=== PATIENT | male | born 1940 | race Hispanic/Latino ===

== ENCOUNTER 2018-06-10 20:39 | Inpatient (IN) | payer MEDICAID, SELFPAY ==
--- NOTE | 2018-06-10 21:03 | RAD ---
Portable frontal chest radiograph: 06/10/2018 COMPARISON: None HISTORY: Hypertension, sepsis FINDINGS: There is a subtle hazy area of increased density in the mid left lung zone.No pneumothorax, pleural fluid, focal consolidation, or alveolar edema. IMPRESSION: Hazy increased density in the mid left lung zone. Findings are suspicious for infectious pneumonitis. No focal consolidation.
[2018-06-10 21:23] LABS: Hemoglobin 12.2 g/dL (14.0-18.0); Mean Corpuscular HGB CONC 34.3 g/dL (32.0-36.0); Mean Corpuscular Hemoglobin 31.1 pg (27.0-31.0); Mean Corpuscular Volume 90.7 fL (78.0-98.0); RBC Distribution Width 12.1 % (11.5-14.5); Red Blood Cell (RBC) Count 3.93 mill/uL (4.70-6.10); White Blood Cell (WBC) Count 10.8 thou/uL (4.8-10.8)
[2018-06-10 21:27] LABS: #Lymphocytes 0.2 thou/uL (1.20-3.40); #Monocytes 0.6 thou/uL (0.11-0.59); #Neutrophils 9.9 thou/uL (1.40-6.50); %Basophils 0.3 % (0.0-1.0); %Eosinophils 0.1 % (0.0-10.0); %Lymphocytes 1.6 % (21.0-51.0); Mean Platelet Volume 8.7 fL (7.4-10.4); Platelet Count 115 thou/uL (130-400)
[2018-06-10 21:28] LABS: Platelet Morphology Comment Appears Decreased
[2018-06-10 21:39] LABS: ALT (SGPT) 8 U/L (8-55); AST (SGOT) 10 U/L (5-34); Alkaline Phosphatase 84 U/L (40-150); Anion Gap 19 mmol/L (10-20); Bilirubin, Total 0.6 mg/dL (0.2-1.2); Calc. Creatinine Clearance 0 mL/min (70-130); Calcium 8.6 mg/dL (7.8-10.44); Carbon Dioxide 19 mmol/L (23-31); Chloride 104 mmol/L (98-107); Estimated GFR-MDRD 4; Globulin 3.3 g/dL (2.4-3.5); Glucose 139 mg/dL (83-110); Lipase 35 U/L (8-78); Magnesium 1.8 mg/dL (1.6-2.6); Potassium 5.3 mmol/L (3.5-5.1); Protein, Total 6.3 g/dL (5.8-8.1); Sodium 137 mmol/L (136-145)
[2018-06-10] MEDS ORDERED: Acetaminophen 500 MG TAB ONE (21:42)
[2018-06-10 21:53] LABS: BUN (Urea Nitrogen) 125 mg/dL (8.4-25.7)
[2018-06-10 21:58] LABS: CKMB 2.5 ng/mL (0-6.6)
[2018-06-10 22:14] LABS: Bilirubin Negative (Negative); Blood, Urine Large (Negative); Clarity CLOUDY (Clear); Glucose, Urine (Dipstick) 250 mg/dL (Negative); Leukocyte Negative (Negative); Nitrite Negative (Negative); Protein, Urine (Dipstick) > or equal to 300 mg/dL (Neg-Trace); Specific Gravity, Urine 1.016 (1.002-1.036); Urobilinogen 0.2 mg/dL (0.2-1.0); pH, Urine 5.5 (5.0-9.0)
[2018-06-10 22:17] LABS: Bacteria/HPF None Seen HPF (None Seen); Hyaline Casts/LPF 4-6 HYALINE CAST LPF (0-3 Hyaline); Pathc Cast-AUWi Flag 1.63 (0-2.49)
[2018-06-10] MEDS ORDERED: cefTRIAXone\\ROCEPHIN 2 GM VIAL ONE (23:04)
[2018-06-10] MEDS ORDERED: Sodium Chloride 0.9% 100 ML ONE (23:04)
--- NOTE | 2018-06-10 23:31 | CT ---
Head CT without contrast 06/10/2018: COMPARISON: 912 oh HISTORY: Altered mental status, hypertension TECHNIQUE: Axial CT imaging at 5 mm intervals from vertex through skull base without contrast FINDINGS: There is mucosal thickening involving the alveolar recess of the left maxillary sinus. Ther e is mild mucosal thickening of the ethmoid air cells and there is near complete opacification of the right sphenoid sinus. There is opacification of the left mastoid air cells. No acute osseous abno rmality is seen. There is encephalomalacia involving the left temporal occipital region, evidence of prior infarction. There is periventricular, deep, and subcortical white matter hypodensity, evidence of small vessel disease. No intracranial hemorrhage midline shift or mass effect. IMPRESSION: Mucosal disease involving the paranasal sinuses and left mastoid air cells. Chronic intra cranial findings with no evidence for intracranial hemorrhage.
--- NOTE | 2018-06-10 23:51 | CT ---
CT of abdomen and pelvis: 06/10/2018 COMPARISON: None HISTORY: Cough, confusion TECHNIQUE: Axial CT imaging at 5 mm intervals from lung bases through pubic symphysis without contras t. Coronal reformatted imaging obtained. FINDINGS: Lack of contrast media limits assessment of the viscera, bowel, vascular structures, and fo r lymphadenopathy. Trace bilateral pleural effusions. Imaged lung bases unremarkable. Mild wall thickening of distal esophagus noted. Trace pericardial fluid. No free intraperitoneal air. Smith catheter present within the urinary bladder. Postoperative hardware noted within the proximal right femur. Hyperdensity in the region of the gallbladder suggests small gallstones. Limited assessment of the li sandra and spleen appear unremarkable. The pancreas, adrenal glands, and kidneys demonstrate no acute findings. There is nonspecific mild wall thickening of the rectum. The remainder of the colon is not well asses sed secondary to the lack of contrast media. The appendix is grossly unremarkable. No evidence for small bowel obstruction. Multifocal atherosclerotic calcification of the abdominal aorta and its bran ches. Review of the osseous structures demonstrates multilevel degenerative change within the spine with disc space narrowing and osteophyte formation. IMPRESSION: No evidence for obstructive uropathy or nephrolithiasis. Trace bilateral pleural effusion s and small volume pericardial fluid. Cholelithiasis. Mild wall thickening of the rectum, which may signify colitis in the proper clinical setting. If symptoms persist, follow-up imaging with IV and or al contrast suggested.
[2018-06-11 00:18] LABS: Troponin I 0.081 ng/mL (< 0.028)
--- NOTE | 2018-06-11 00:20 | PDOC.FPRHP ---
- History of Present Illness Chief Complaint: fever, weakness History of Present Illness: 78 yo M with PMH HTN and CKD presents with daughter for fever, productive cough , weakness. Symptoms started yesterday and have progressively worsened. Much of history obtained from daughter. Notes subjective fever/chills, sleepiness, weak , productive cough, increased thirst. While in the room patient complains of chest pain that is also posterior and reproducible to palpation. Patient is A& O x1. Patient lives in [place] and came to [place] 2 months ago to visit family. Has history of CKD and was previously recommended dialysis in [place] but refused. Lengthy discussions with ER doctors and Dr. Orellana in ED regarding dialysis. Patient refuses at this time. Discussed code status and daughter explained other sisters are coming into town and they will have further discussions about this. Patient to be full code at this time. ED Course: rocephin, tylenol, 500 mL, vanc, cefazolin - Allergies/Adverse Reactions Allergies Allergy/AdvReac Type Severity Reaction Status Date / Time No Known Drug Allergies Allergy Verified 06/11/18 01:24 - Home Medications Medication Instructions Recorded Confirmed Type Bumetanide 2 mg PO 0900,1400 06/11/18 06/11/18 History Calcitriol 0.25 mcg PO DAILY 06/11/18 06/11/18 History Prazosin HCl [Minipress] 1 mg PO TID 06/11/18 06/11/18 History - History PMHx: HTN, CKD PSHx: none FHx: none Social: No tobacco, alcohol, drug use. - Review of Systems General: reports: fever/chills, weight/appetite/sleep changes, fatigue Eyes: denies: vision changes (poor vision, no acute change) ENT: denies: nasal congestion Respiratory: reports: cough Cardiovascular: reports: chest pain, edema. denies: palpitation, orthopnea Gastrointestinal: denies: nausea, vomiting, diarrhea, abdominal pain Genitourinary: denies: dysuria Skin: denies: rashes, lesions Musculoskeletal: reports: pain, tenderness Neurological: reports: weakness - Vital signs BP: 183/99 HR: 94 RR: 24 Tmax: 101.3 Pox: 98% on RA Wt: 72 kg - Physical Exam Constitutional: NAD, other (A&O to person only) HEENT: normocephalic and atraumatic, MMM, oropharynx clear, other (poor vision and hearing) Neck: supple, trachea midline, no LAD Chest: other (L side TTP) Heart: RRR, normal S1/S2, pulses present, other (1+ pitting edema BLE) Lungs: no respiratory distress, other (diffuse rhonchi bilateral with decreased air movement in lower lungs) Abdomen: soft, non-tender, bowel sounds present Musculoskeletal: normal structure, normal tone Neurological: no focal deficit Skin: no rash/lesions, good turgor Heme/Lymphatic: no unusual bruising or bleeding FMR H&P: Results - Labs Result Diagrams: 06/11/18 03:03 06/11/18 03:03 Lab results: WBC 10.8 thou/uL (4.8-10.8) 06/10/18 20:51 Hgb 12.2 g/dL (14.0-18.0) L 06/10/18 20:51 Hct 35.7 % (42.0-52.0) L 06/10/18 20:51 MCV 90.7 fL (78.0-98.0) 06/10/18 20:51 Plt Count 115 thou/uL (130-400) L 06/10/18 20:51 Neutrophils % 92.0 % (42.0-75.0) H 06/10/18 20:51 Sodium 137 mmol/L (136-145) 06/10/18 20:51 Potassium 5.3 mmol/L (3.5-5.1) H 06/10/18 20:51 Chloride 104 mmol/L (98-107) 06/10/18 20:51 Carbon Dioxide 19 mmol/L (23-31) L 06/10/18 20:51 BUN 125 mg/dL (8.4-25.7) H 06/10/18 20:51 Creatinine 12.31 mg/dL (0.7-1.3) H 06/10/18 20:51 Glucose 139 mg/dL (83-110) H 06/10/18 20:51 Lactic Acid 0.8 mmol/L (0.5-2.2) 06/10/18 20:51 Calcium 8.6 mg/dL (7.8-10.44) 06/10/18 20:51 Total Bilirubin 0.6 mg/dL (0.2-1.2) 06/10/18 20:51 AST 10 U/L (5-34) 06/10/18 20:51 ALT 8 U/L (8-55) 06/10/18 20:51 Alkaline Phosphatase 84 U/L (40-150) 06/10/18 20:51 CK-MB (CK-2) 2.5 ng/mL (0-6.6) 06/10/18 20:51 B-Natriuretic Peptide 528.1 pg/mL (0-100) H 06/10/18 20:51 Serum Total Protein 6.3 g/dL (5.8-8.1) 06/10/18 20:51 Albumin 3.0 g/dL (3.4-4.8) L 06/10/18 20:51 Lipase 35 U/L (8-78) 06/10/18 20:51 Urine Ketones Negative mg/dL (Negative) 06/10/18 21:52 Urine Blood Large (Negative) H 06/10/18 21:52 Urine Nitrite Negative (Negative) 06/10/18 21:52 Ur Leukocyte Esterase Negative (Negative) 06/10/18 21:52 Urine RBC 7-10 HPF (0-3) H 06/10/18 21:52 Urine WBC 11-20 HPF (0-3) H 06/10/18 21:52 Ur Squamous Epith Cells 4-6 HPF (0-3) H 06/10/18 21:52 Urine Bacteria None Seen HPF (None Seen) 06/10/18 21:52 FMR H&P: A/P - Problem List (1) Lower respiratory infection (e.g., bronchitis, pneumonia, pneumonitis, pulmonitis) Current Visit: Yes Status: Acute Code(s): J22 - UNSPECIFIED ACUTE LOWER RESPIRATORY INFECTION (2) CKD (chronic kidney disease) Current Visit: Yes Status: Acute Code(s): N18.9 - CHRONIC KIDNEY DISEASE, UNSPECIFIED (3) Acute metabolic encephalopathy Current Visit: Yes Status: Acute Code(s): G93.41 - METABOLIC ENCEPHALOPATHY (4) HTN (hypertension) Current Visit: Yes Status: Acute Code(s): I10 - ESSENTIAL (PRIMARY) HYPERTENSION (5) Chest pain Current Visit: Yes Status: Acute Code(s): R07.9 - CHEST PAIN, UNSPECIFIED (6) Normocytic anemia Current Visit: Yes Status: Acute Code(s): D64.9 - ANEMIA, UNSPECIFIED (7) Thrombocytopenia Current Visit: Yes Status: Acute Code(s): D69.6 - THROMBOCYTOPENIA, UNSPECIFIED (8) Elevated brain natriuretic peptide (BNP) level Current Visit: Yes Status: Acute Code(s): R79.89 - OTHER SPECIFIED ABNORMAL FINDINGS OF BLOOD CHEMISTRY - Plan Infectious pneumonitis - fever, no tachypnea, WBC and lactic normal on admission - CXR with hazy increased density in mid left lung, infectious pneumonitis, no focal consolidation - CT ab/pelvis showed trace b/l pleural effusions and small volume pericardial fluid, cholelithiasis, mild wall thickening of rectum - CT brain showed no acute intracranial process - will continue levaquin 06/11 for now - duoneb prn - pending blood cultures, quant gold, procal Acute renal failure on CKD - Cr 12.3, unknown baseline - patient is candidate for dialysis, currently does not desire - Dr. Orellana consulted from ED, appreciate further recommendations - received 500mL in ED, will continue gentle fluids @ 75. Smith [address]. Monitor strict I&Os and for signs of volume overload. Acute metabolic encephalopathy - 2/2 above - ordered bedside swallow HTN - labetalol and hydralazine prn - will restart home bumetanide, prazosin Chest pain, reproducible - trop indeterminate, will continue to trend - EKG normal Normocytic anemia - Hgb 12, likely 2/2 chronic disease Thrombocyopenia - platelets 115 - will trend on am labs Elevated BNP - 500, possibly unreliable considering kidney function Diet: Renal Ppx: heparin Dispo: admit to inpatient telemetry PCP: none, lives in [place] Case discussed with Dr. Champion FMR H&P: Upper Level - Pertinent history 78 yo HM with PMHx HTN and CKD who presents with 2 days of symptoms of malaise, weakness, fever/chills and increased thirst with productive cough. Daughter reports he is here visiting his children from [place] and when he began to feel poorly, they brought him to ED. Denies sick contacts. Has known h/o CKD and strongly declines dialysis. Dr. Orellana saw him in ED. He reports he still makes urine. Denies n/v/d. - Pertinent findings VS reviewed - hypertensive Gen: awake, alert, oriented x2 HEENT: NCAT, MMM, poor vision and slightly diminished hearing, trachea midline, JVD noted BL CV: RRR, no murmur noted RESP: diffuse rhonchi BL ABD: soft, NTND, bowel sound present EXT: trace edema to mid-melgoza BL, feet with slightly thickened nails, pulse 1+ throughout - Plan Date/Time: 06/11/18 0020 78 yo M with known h/o CKD presents with SARAH on CKD 1. SARAH on CKD - Meets criteria for dialysis but declines - Appreciate Dr. Orellana's recommendations - Will give gentle fluids and monitor UOP and for signs of fluid overload - Repeat BMP in a.m. 2. Infectious pneumonitis - No focal consolidation on CXR - Given vanc, rocephin and cefazolin in ED - Will continue abx coverage with levaquin - Quant gold pending for TB risk 3. HTN - Home medications and hydralazine PRN 4. Chest pain - Reproducible with palpation - Troponin indeterminate, will continue to trend - EKG NSR - CXR showed infectious pneumonitis Please see Dr. Ross's note for remainder of A/P I, [place] Henao MD, PGY-3, have evaluated this patient and agree with findings/ plan as outlined by internal revenue service agent resident. Pertinent changes/additions are listed here. Addendum - Attending - Attending Attestation Date/Time: 06/11/18 [id number] I personally evaluated the patient and discussed the management with Dr. Ross on 06/10/2018 I agree with the History, Examination, Assessment and Plan documented above with any addition or exceptions noted below- 78 yo M with h/o of HTN and CKD presents with fever, productive cough, weakness. Symptoms started yesterday and have progressively worsened. Endorses subjective fever/chills, sleepiness, weak , productive cough, increased thirst. While in the room patient complains of chest pain that is also posterior and reproducible to palpation. Patient is A& O x1. Has history of CKD and was previously recommended dialysis in [place] but refused. Lengthy discussions with ER doctors and Dr. Orellana in ED regarding dialysis. Patient refuses at this time. PMH/PSH/Meds/ SH reviewed and agree with resident's documentation. T101.3 P94, RR14 BP 190/82 99%RA Exam repeated by me and agree with resident's findings. Labs: WBC=10.8, H/H=12.2/35.7 , Bfx=751, Jx=292, K=5.3, Ts=150, CO2=19, BUN/Gq=646/12.31, Qzex=644, AST/ALT=10 /8, XLD=764.1, TSH=2.8637, Trop I=0.066, U/A-lg blood, 4+prot, 11-20 WBC, 7-10 RBC. Flu negative, EKG- NSR, no ST changes. CXR- LLL haziness suspicious for infectious pneumonitis A/P: 1) Infectious pneumonitis- Admit to medical; continue levaquin. 20 CKD- patient declining dialysis; continue to monitor.
[2018-06-11] MEDS ORDERED: Acetaminophen 325 MG TAB PO PRN ×2 (00:34→00:55)
[2018-06-11] MEDS ORDERED: Ondansetron PF 4 MG/2 ML Vial IVP PRN ×2 (00:34→00:55)
[2018-06-11] MEDS ORDERED: Ondansetron ODT 4 MG TAB SL PRN (00:34)
[2018-06-11] MEDS ORDERED: Ondansetron ODT 4 MG TAB PO PRN (00:55)
[2018-06-11] MEDS ORDERED: Acetaminophen 650 MG Suppository PR PRN (00:55)
[2018-06-11] MEDS: Lactated Ringer's 1,000 ML IV SCH ×2 (01:26→14:48)
[2018-06-11] MEDS: Labetalol HCl 100 MG/20 ML VIAL SLOW IVP PRN ×2 (02:03→17:53)
[2018-06-11 02:41] VITALS: BMI 27.6
[2018-06-11 04:00] LABS: Band 18 % (5-11); Hemoglobin 11.4 g/dL (14.0-18.0); Lymphocytes 3 % (21-51); MDiff Complete? YES; Mean Corpuscular HGB CONC 33.4 g/dL (32.0-36.0); Mean Corpuscular Hemoglobin 30.2 pg (27.0-31.0); Mean Corpuscular Volume 90.3 fL (78.0-98.0); Mean Platelet Volume 8.5 fL (7.4-10.4); Monocytes 6 % (0-10); Neutrophil 73 % (42-75); Platelet Count 107 thou/uL (130-400); Platelet Morphology Comment Appears Decreased; Red Blood Cell (RBC) Count 3.78 mill/uL (4.70-6.10); White Blood Cell (WBC) Count 9.7 thou/uL (4.8-10.8)
[2018-06-11 04:22] LABS: Anion Gap 18 mmol/L (10-20); Calc. Creatinine Clearance 5 mL/min (70-130); Calcium 8.2 mg/dL (7.8-10.44); Carbon Dioxide 18 mmol/L (23-31); Chloride 106 mmol/L (98-107); Estimated GFR-MDRD 4; Glucose 121 mg/dL (83-110); Potassium 4.9 mmol/L (3.5-5.1); Sodium 137 mmol/L (136-145)
[2018-06-11 04:34] LABS: BUN (Urea Nitrogen) 127 mg/dL (8.4-25.7)
[2018-06-11] MEDS: hydrALAZINE 20 MG/ML VIAL SLOW IVP PRN ×2 (04:46→21:41)
--- NOTE | 2018-06-11 06:51 | PDOC.FM ---
- Subjective Subjective: A&O x4 this morning. Family from out of state will be arriving around 1pm today and would like to have discussion with options for treatment at that time. Currently reports headache and some chest pain with palpation of chest wall but denies shortness of breath or pain elsewhere. - Objective MAR Reviewed: Yes Vital Signs & Weight: Vital Signs (12 hours) Temp Pulse Resp BP Pulse Ox 06/11/18 05:51 89 165/74 H 06/11/18 04:14 98.3 F 86 16 188/80 H 96 06/11/18 02:42 82 190/77 H 06/11/18 02:00 98 217/93 H 06/11/18 00:12 97.5 F L 97 20 194/86 H 93 L Weight Weight 68.583 kg Result Diagrams: 06/11/18 03:03 06/11/18 03:03 Phys Exam - Physical Examination Constitutional: NAD HEENT: moist MMs Neck: supple diffuse rhonchi bilateral with decreased air movement in lower lungs Cardiovascular: RRR, no significant murmur 1+ pitting edema b/l Gastrointestinal: soft, non-tender, positive bowel sounds Musculoskeletal: no edema Neurological: moves all 4 limbs Psychiatric: normal affect, A&O x 3 Skin: normal turgor Dx/Plan (1) ESRD (end stage renal disease) Code(s): N18.6 - END STAGE RENAL DISEASE Status: Acute (2) Atypical chest pain Code(s): R07.89 - OTHER CHEST PAIN Status: Acute (3) Acute metabolic encephalopathy Code(s): G93.41 - METABOLIC ENCEPHALOPATHY Status: Acute (4) HTN (hypertension) Code(s): I10 - ESSENTIAL (PRIMARY) HYPERTENSION Status: Acute (5) Lower respiratory infection (e.g., bronchitis, pneumonia, pneumonitis, pulmonitis) Code(s): J22 - UNSPECIFIED ACUTE LOWER RESPIRATORY INFECTION Status: Acute (6) Normocytic anemia Code(s): D64.9 - ANEMIA, UNSPECIFIED Status: Acute (7) Thrombocytopenia Code(s): D69.6 - THROMBOCYTOPENIA, UNSPECIFIED Status: Acute - Plan Plan: 78yo male with pmh of HTN presenting with infectious pneumonitis and SARAH Infectious pneumonitis - Initially fever, no tachypnea, WBC, lactic normal on admission - CXR: hazy increased density in mid L lung, infectious pneumonitis, no focal consolidation - CT ab/pelvis: trace b/l pleural effusions & small volume pericardial fluid, cholelithiasis, mild wall thickening of rectum - CT brain: no acute intracranial process - Continue levaquin 06/11, procal pending - Duonebs PRN - Blood & Urine cxs, quant gold - Will give PPD skin test as Quant gold will not be sent out until Mon - Possibly due to aspiration 2/2 encephalopathy related to ESRD ESRD likely 2/2 HTN - Hgb A1c 4.4 - Cr 12.3-> 12.56, unknown baseline - Candidate for dialysis, currently does not desire - Dr. Orellana consulted from ED, appreciate recs - 500mL in ED, continue gentle fluids @75. Smith in place. Monitor strict I&Os and for signs of volume overload. - Palliative care consult - Family discussion this afternoon using stock tracer planned Acute metabolic encephalopathy - 2/2 ESRD HTN - labetalol and hydralazine prn - Continue home bumetanide, prazosin Chest pain, reproducible - Trop indeterminates, stable - EKG no ST segment changes Normocytic anemia - Hgb 12, likely 2/2 chronic disease Thrombocyopenia - Continue to monitor with CBC Elevated BNP - 500, possibly unreliable considering kidney function Code Status: FULL DVT ppx: Heparin PCP: none, lives in [place]
[2018-06-11] MEDS ORDERED: Tuberculin PPD 0.1 ML VIAL I-DERMAL SCH (07:00)
[2018-06-11 08:14] LABS: Hemoglobin A1c 4.4 % (4.0-6.0)
[2018-06-11] MEDS ORDERED: Prevnar 13-Val Conj/PF 0.5 ML SYRINGE IM ONE (09:00)
[2018-06-11] MEDS: Calcitriol 0.25 MCG CAP PO SCH (09:36)
[2018-06-11] MEDS: Bumetanide 1 MG TAB PO SCH ×2 (09:37→14:48)
[2018-06-11] MEDS: Heparin 5,000 UNITS/ML VIAL SC SCH ×3 (09:37→21:39)
[2018-06-11] MEDS: Prazosin HCl 1 MG CAP PO SCH ×3 (09:38→21:41)
--- NOTE | 2018-06-11 11:45 | CON ---
DATE OF CONSULTATION: 06/10/2018 TIME OF CONSULTATION: 11:00 p.m. in the emergency room. REASON FOR CONSULTATION: End-stage renal disease and hyperkalemia. HISTORY OF PRESENT ILLNESS: This is a very pleasant 78-year-old gentleman, who presented to the emergency room after feeling bad. The patient was noted to have an elevated creatinine and he was advised to start on dialysis, but the patient has declined. PAST MEDICAL HISTORY: Hypertension, CKD, anemia. MEDICATIONS: Home medications list reviewed. Hospital medications list reviewed. ALLERGIES: REVIEWED. REVIEW OF SYSTEMS: Negative. PHYSICAL EXAMINATION: GENERAL: The patient is awake and alert. VITAL SIGNS: Afebrile, pulse 75, breathing 16, blood pressure 160/70. HEAD/NECK: Normocephalic and atraumatic. EYES: EOMI. No deformity. EARS: Clear. No ulcers. NOSE: Intact. No lesions. MOUTH: Clear. No discharge. THROAT: Clear. No exudate. LUNGS: Clear. No crackles. CARDIAC: S1, S2. No rub. ABDOMEN: Benign. Bowel sounds positive. GENITALIA/RECTUM: Smith absent. BACK/EXTREMITIES: Edema 0+. NEUROLOGICAL: Alert and motor intact. SKIN: LYMPHATICS: LABORATORY DATA: Reviewed. ASSESSMENT AND PLAN: Stage 6 chronic kidney disease. Advised dialysis, the patient declined. Hypertension. Continue home medication. Anemia, stable. Uremia, stable. Overall prognosis is poor. Risks were given again. This patient was seen on June 10 at 11 p.m. in the emergency room. Job ID: [id number]
--- NOTE | 2018-06-11 12:29 | PRG ---
DATE OF SERVICE: 06/11/2018 SUBJECTIVE: A 78-year-old gentleman being seen for end-stage renal disease. The patient denied any nausea, vomiting, or chest pain. OBJECTIVE: CONSTITUTIONAL: On exam, the patient is awake and alert. VITAL SIGNS: Afebrile, pulse 93, breathing 16, and blood pressure 165/74. GENERAL APPEARANCE AND MENTAL STATUS: Fair. HEAD/NECK: Normocephalic. Atraumatic. EYES: EOMI. No deformity. EARS: Clear. No ulcers. NOSE: Intact. No lesions. MOUTH: Clear. No discharge. THROAT: Clear. No exudate. LUNGS: Clear. No crackles. CARDIAC: S1, S2. No rub. ABDOMEN: Benign. Bowel sounds positive. GENITALIA/RECTUM: Smith absent. BACK/EXTREMITIES: Edema 0+. NEUROLOGICAL: Alert and motor intact. LABORATORY DATA: Reviewed. ASSESSMENT AND PLAN: 1. Stage chronic kidney disease. The patient refused dialysis. 2. Hypertension, stable. 3. Anemia, stable. I will sign off on this patient. Please reconsult as needed. Job ID: [id number]
--- NOTE | 2018-06-11 13:04 | PRG ---
DATE OF SERVICE: 06/11/2018 Mr. Brandon Zhang is a 78-year-old man, who presented to our ER with productive cough and weakness. He has a history of CKD and was noted to have a creatinine of 12. He is not completely anuric. We consulted with Nephrology, who have recommended dialysis, but the patient is refusing. We explained to the family the connotations of refusing dialysis. In the event, a son is arriving from [place] at around 1 o'clock this afternoon and there will be a family conference held with our resident. At that time, a decision will be made about whether or not the patient wants to pursue dialysis. For the time being, we will now continue treating him for a lower respiratory infection, possibly bronchitis. Job ID: [id number]
[2018-06-11] MEDS: guaiFENesin ER 600 MG TAB PO PRN (21:40)
[2018-06-11] MEDS: Benzonatate 100 MG CAP PO PRN (21:40)
[2018-06-12] MEDS: Labetalol HCl 100 MG/20 ML VIAL SLOW IVP PRN (00:24)
--- NOTE | 2018-06-12 06:00 | PDOC.FM ---
- Subjective Subjective: Feeling okay this morning. Denies pain. Currently NPO for possible tunnel cath placement if pt consents to dialysis after speaking with Nephrology today. - Objective MAR Reviewed: Yes Vital Signs & Weight: Vital Signs (12 hours) Temp Pulse Resp BP BP Pulse Ox 06/12/18 04:00 98.5 F 80 18 169/78 H 95 06/12/18 00:24 88 185/84 H 06/12/18 00:00 97.8 F 88 19 185/84 H 93 L 06/11/18 21:41 85 198/88 H 06/11/18 20:40 93 L 06/11/18 19:57 97.4 F L 86 18 213/93 H 94 L Weight Weight 68.583 kg I&O: 06/10/18 06/11/18 06/12/18 06:59 06:59 06:59 Intake Total 1190 Output Total 670 Balance 520 Result Diagrams: 06/12/18 05:24 06/12/18 05:24 Phys Exam - Physical Examination Constitutional: NAD HEENT: moist MMs Neck: supple Cardiovascular: RRR, no significant murmur Gastrointestinal: soft, non-tender, positive bowel sounds Musculoskeletal: pulses present Neurological: moves all 4 limbs Psychiatric: normal affect, A&O x 3 Skin: no rash Dx/Plan (1) ESRD (end stage renal disease) Code(s): N18.6 - END STAGE RENAL DISEASE Status: Acute (2) Atypical chest pain Code(s): R07.89 - OTHER CHEST PAIN Status: Acute (3) Acute metabolic encephalopathy Code(s): G93.41 - METABOLIC ENCEPHALOPATHY Status: Acute (4) HTN (hypertension) Code(s): I10 - ESSENTIAL (PRIMARY) HYPERTENSION Status: Acute (5) Lower respiratory infection (e.g., bronchitis, pneumonia, pneumonitis, pulmonitis) Code(s): J22 - UNSPECIFIED ACUTE LOWER RESPIRATORY INFECTION Status: Acute (6) Normocytic anemia Code(s): D64.9 - ANEMIA, UNSPECIFIED Status: Acute (7) Thrombocytopenia Code(s): D69.6 - THROMBOCYTOPENIA, UNSPECIFIED Status: Acute - Plan Plan: 78yo male with pmh of HTN presenting with infectious pneumonitis and SARAH Infectious pneumonitis - Initially fever, no tachypnea, WBC, lactic normal on admission - CXR: hazy increased density in mid L lung, infectious pneumonitis, no focal consolidation - CT ab/pelvis: trace b/l pleural effusions & small volume pericardial fluid, cholelithiasis, mild wall thickening of rectum - Continue levaquin 06/11 - Duonebs PRN - Blood & Urine cxs, quant gold, PPD pending - Possibly due to aspiration 2/2 encephalopathy related to ESRD ESRD likely 2/2 HTN - Hgb A1c 4.4 - Cr 12.3-> 12.56, unknown baseline - Candidate for dialysis, currently does not desire - Dr. Orellana consulted from ED, appreciate recs - 500mL in ED, continue gentle fluids @75. Smith in place. Monitor strict I&Os and for signs of volume overload. - Palliative care consult - Family discussion this afternoon using sheriffs planned HTN - Start Atenolol q2 days. - labetalol and hydralazine prn - Continue home bumetanide, prazosin Acute metabolic encephalopathy, resolved - 2/2 ESRD - CT brain: no acute intracranial process Likely MSK chest wall pain - Trop indeterminates, stable - EKG no ST segment changes Normocytic anemia - Hgb 12, likely 2/2 chronic disease Thrombocyopenia - Continue to monitor with CBC Elevated BNP - 500, possibly unreliable considering kidney function Code Status: FULL DVT ppx: Heparin PCP: none, lives in [place] Addendum - Attending - Attending Attestation Date/Time: 06/12/182107 I personally evaluated the patient and discussed the management with Dr. Mosqueda I agree with the History, Examination, Assessment and Plan documented above with any addition or exceptions noted below. Patient partially deaf through sheriffs confirmed he desires to proceed with hemodialysis.
[2018-06-12 06:01] LABS: Anion Gap 18 mmol/L (10-20); Calc. Creatinine Clearance 5 mL/min (70-130); Calcium 8.1 mg/dL (7.8-10.44); Carbon Dioxide 17 mmol/L (23-31); Chloride 105 mmol/L (98-107); Estimated GFR-MDRD 4; Glucose 104 mg/dL (83-110); Potassium 5.1 mmol/L (3.5-5.1); Sodium 135 mmol/L (136-145)
[2018-06-12 06:13] LABS: BUN (Urea Nitrogen) 127 mg/dL (8.4-25.7)
[2018-06-12 06:15] LABS: Band 21 % (5-11); Hemoglobin 11.2 g/dL (14.0-18.0); Lymphocytes 7 % (21-51); MDiff Complete? YES; Mean Corpuscular HGB CONC 32.9 g/dL (32.0-36.0); Mean Corpuscular Hemoglobin 30.7 pg (27.0-31.0); Mean Corpuscular Volume 93.2 fL (78.0-98.0); Metamyelocyte 1 % (0-0); Monocytes 6 % (0-10); Neutrophil 65 % (42-75); Platelet Count 96 thou/uL (130-400); Platelet Morphology Comment Appears Decreased; RBC Distribution Width 12.1 % (11.5-14.5); Red Blood Cell (RBC) Count 3.65 mill/uL (4.70-6.10)
[2018-06-12] MEDS: Atenolol 25 MG TAB PO SCH (07:59)
[2018-06-12] MEDS: Calcitriol 0.25 MCG CAP PO SCH (10:03)
[2018-06-12] MEDS: Heparin 5,000 UNITS/ML VIAL SC SCH ×3 (10:04→21:38)
[2018-06-12] MEDS: Prazosin HCl 1 MG CAP PO SCH ×3 (10:04→21:37)
[2018-06-12] MEDS: Bumetanide 1 MG TAB PO SCH ×2 (10:23→14:36)
[2018-06-12] MEDS: hydrALAZINE 20 MG/ML VIAL SLOW IVP PRN (10:23)
--- NOTE | 2018-06-12 14:32 | PRG ---
DATE OF SERVICE: 06/12/2018 SUBJECTIVE: This is a 78-year-old gentleman, being seen for end-stage renal disease. The patient denies any nausea, vomiting, or chest pain. OBJECTIVE: CONSTITUTIONAL: On examination, the patient is awake, alert. VITAL SIGNS: Afebrile, pulse 71, breathing 16, blood pressure 150/69. GENERAL APPEARANCE AND MENTAL STATUS: Fair. HEAD/NECK: Normocephalic. Atraumatic. EYES: EOMI. No deformity. EARS: Clear. No ulcers. NOSE: Intact. No lesions. MOUTH: Clear. No discharge. THROAT: Clear. No exudate. LUNGS: Clear. No crackles. CARDIAC: S1, S2. No rub. ABDOMEN: Benign. Bowel sounds positive. GENITALIA/RECTUM: Smith absent. BACK/EXTREMITIES: Edema 0+. NEUROLOGICAL: Alert and motor intact. LABORATORY DATA: Reviewed. ASSESSMENT AND PLAN: 1. Stage 6 chronic kidney disease. Plan, dialysis. 2. Hypertension. Plan, dialysis. 3. Hyperkalemia. Plan, dialysis. 4. Metabolic acidosis. Plan, dialysis. Job ID: [id number]
[2018-06-12 15:50] LABS: HBSAB Concentration 2.59 mIU/mL; HBSAg Index 0.28 S/CO (0-0.99); Hep B Core Total Ab Non-Reactive (NonReactive); Hep B Surf AB Non-Reactive (NonReactive); Hep B Surf Ag Non-Reactive S/CO (NonReactive)
[2018-06-12] MEDS ORDERED: PROPOFOL 200 MG/20 ML VIAL ONE (17:10)
[2018-06-12] MEDS ORDERED: Lidocaine 1% PF 5 ML VIAL ONE (17:10)
--- NOTE | 2018-06-12 17:58 | ULT ---
BILATERAL UPPER EXTREMITY VENOUS DOPPLER ULTRASOUND FOR DIALYSIS ACCESS: 06/12/18 HISTORY: End-stage renal disease. FINDINGS: RIGHT UPPER EXTREMITY BRACHIAL ARTERY: 5 mm RADIAL ARTERY: 2.5 mm ULNAR ARTERY: 3 mm CEPHALIC VEIN Proximal Arm: 1.5 mm Mid Arm: 1.3 mm Distal Arm: 1.2 mm Antecubital Fossa: 3.7 mm Proximal Forearm: 2.1 mm Mid Forearm: 2.4 mm Distal Forearm: 1.9 mm BASILIC VEIN Proximal Arm: 4.9 mm Mid Arm: 4.6 mm Distal Arm: 4.6 mm Antecubital Fossa: 2.4 mm Proximal Forearm: 1 mm Mid Forearm: 0.4 mm Distal Forearm: 1 mm LEFT UPPER EXTREMITY BRACHIAL ARTERY: 4.8 mm RADIAL ARTERY: 3.4 mm ULNAR ARTERY: 2.6 mm CEPHALIC VEIN Proximal Arm: 1 mm Mid Arm: 1 mm Distal Arm: 0.9 mm Antecubital Fossa: 1.9 mm Proximal Forearm: 2 mm Mid Forearm: 1.5 mm Distal Forearm: 1.9 mm BASILIC VEIN Proximal Arm: 8 mm Mid Arm: 8 mm Distal Arm: 3.9 mm Antecubital Fossa: 4.5 mm Proximal Forearm: Not visualized Mid Forearm: Not visualized Distal Forearm: Not visualized POS: [facility]
[2018-06-12] MEDS ORDERED: Heparin 10,000 UNITS/1 ML VIAL ONE (18:47)
[2018-06-12] MEDS ORDERED: Bupivacaine HCl 0.5%/Epinephrine 1:200,000/PF 30 ml Vial ONE (18:47)
[2018-06-12] MEDS ORDERED: Lidocaine 2% PF 5 ML VIAL ONE (18:48)
[2018-06-12] MEDS ORDERED: Sodium Chloride 0.9% 20 ML ONE (18:48)
[2018-06-12] MEDS ORDERED: Fentanyl 100 MCG/2 ML VIAL ONE (19:00)
[2018-06-12] MEDS ORDERED: Midazolam HCl 2 mg/2 ml Vial ONE (19:00)
[2018-06-12] MEDS ORDERED: Promethazine HCl 25 MG/ML VIAL IM PRN (19:35)
[2018-06-12] MEDS ORDERED: Promethazine HCl 25 MG/ML VIAL SLOW IVP PRN (19:35)
[2018-06-12] MEDS ORDERED: Ondansetron HCl/PF 4 MG/2 ML Vial IVP PRN (19:35)
--- NOTE | 2018-06-12 19:50 | HP ---
HISTORY OF PRESENT ILLNESS: Daniel Zhang is a 78-year-old male patient with end-stage renal disease, who is nonresident of the [place]. He is visiting his family from [place]. He is advised in [place] to undergo dialysis, but he had several relatives that had undergone dialysis. He did not want to do that after he began feeling poorly during [place] and his family talked to him. He now wishes to start dialysis. He is admitted to the hospital by the hospitalist service and I have been asked to see him regarding placement of a hemodialysis catheter. He has worked out for culture most of his life. He has had a marking ultrasound performed today revealing small veins on the right, cephalic vein 1.5, 1.3, 1.2, 3.7 mm; AC 2.1; proximal forearm 2.4, 1.9; distal forearm basilic vein 4.9, 4.6, 4.6, 2.4; antecubital fossa 1 mm, 0.4 mm; on the left, cephalic vein is 1 mm, 1 mm, 0.9 mm, 1.9 mm; antecubital fossa basilic vein on the left, 8 mm, 8 mm, 3.9, 4.9; antecubital fossa not visualized in the forearm. ALLERGIES: NONE. TOBACCO, NONE. ALCOHOL, NONE. MEDICATIONS: 1. Prazosin 1 mg t.i.d. 2. Calcitriol 0.25 mcg p.o. daily. 3. Bumetanide 2 mg p.o. b.i.d. In the hospital, he is on; 1. Bumex 2 mg b.i.d. 2. Rocaltrol 0.25 mcg daily. 3. Prazosin 1 mg p.o. t.i.d. TB skin test has been performed. PAST SURGICAL HISTORY: ORIF of femur. PAST MEDICAL HISTORY: Hypertension, chronic kidney disease, and end-stage renal disease. PHYSICAL EXAMINATION: VITAL SIGNS: Height 5 feet 2 inches, 151 pounds, 27 BMI. HEAD, EARS, EYES, NOSE, AND THROAT: Unremarkable. LUNGS: Clear to auscultation. CARDIAC: Regular rate and rhythm. No murmur or gallop. PULMONARY: Rhonchi at base. ABDOMEN: Soft and nontender. No mass. EXTREMITIES: Unremarkable. He has faintly palpable pulses at wrist. LABORATORY DATA: Hemoglobin 11, white count 10. Sodium 135, potassium 5.1, creatinine 12.58, BUN 127, and GFR 4. CT scan of the brain reveals chronic ischemic disease. Abdomen and pelvis CAT scan on admission reveals pleural effusions, wall thickening in the rectum, perhaps early may be some degree of colitis. This is a stone protocol. Marking ultrasound vein mapping results as noted above. He had an antecubital IV in place that they removed upon my consult. ASSESSMENT AND PLAN: 1. End-stage renal disease. Plan placement of hemodialysis catheter and central line today and plan placement of more definitive dialysis access later in the week. His cephalic vein on the right is small. Basilic vein is potential to be used in the staged procedure. Cephalic vein on the left is very small. Basilic vein is very big on the left including the antecubital fossa and that possibly could be used. We will attempt dialysis access later in the week, hopefully encompassing the chipewwa fistula, but he may need a staged procedure to accomplish this. 2. Hypertension. Job ID: [id number]
--- NOTE | 2018-06-12 20:21 | RAD ---
PORTABLE CHEST: 06/12/18 HISTORY: Shortness of breath. Hospital follow-up. COMPARISON: 06/10/18. FINDINGS/IMPRESSION: A new large caliber central line via the right jugular overlies the SVC. A left jugular central line also has tip overlying the SVC. Hazy infiltrate in the left upper lung. Mild vascular engorgement. POS: [facility]
--- NOTE | 2018-06-13 06:12 | PDOC.FM ---
- Subjective Subjective: No overnight events. Had dialysis catheter placed yesterday. Plan for dialysis today. Reports shortness of breath. No chest pain. - Objective MAR Reviewed: Yes Vital Signs & Weight: Vital Signs (12 hours) Temp Pulse Resp BP Pulse Ox 06/13/18 04:00 98 F 69 18 175/77 H 96 06/13/18 00:00 98.4 F 68 18 164/71 H 95 06/12/18 20:20 97.8 F 65 18 160/66 H 93 L Weight Weight 68.583 kg I&O: 06/11/18 06/12/18 06/13/18 06:59 06:59 06:59 Intake Total 1870 150 Output Total 1170 Balance 700 150 Result Diagrams: 06/13/18 08:58 06/13/18 08:58 Phys Exam - Physical Examination Constitutional: NAD HEENT: moist MMs Neck: supple Diffuse wheezing, crackles Cardiovascular: RRR Gastrointestinal: soft, non-tender, positive bowel sounds Musculoskeletal: pulses present Neurological: moves all 4 limbs Psychiatric: normal affect, A&O x 3 Skin: no rash Dx/Plan (1) ESRD (end stage renal disease) Code(s): N18.6 - END STAGE RENAL DISEASE Status: Acute (2) Atypical chest pain Code(s): R07.89 - OTHER CHEST PAIN Status: Acute (3) Acute metabolic encephalopathy Code(s): G93.41 - METABOLIC ENCEPHALOPATHY Status: Acute (4) HTN (hypertension) Code(s): I10 - ESSENTIAL (PRIMARY) HYPERTENSION Status: Acute (5) Lower respiratory infection (e.g., bronchitis, pneumonia, pneumonitis, pulmonitis) Code(s): J22 - UNSPECIFIED ACUTE LOWER RESPIRATORY INFECTION Status: Acute (6) Normocytic anemia Code(s): D64.9 - ANEMIA, UNSPECIFIED Status: Acute (7) Thrombocytopenia Code(s): D69.6 - THROMBOCYTOPENIA, UNSPECIFIED Status: Acute - Plan Plan: 78yo male with pmh of HTN presenting with infectious pneumonitis and SARAH Infectious pneumonitis - Initially fever, no tachypnea, WBC, lactic normal on admission - CXR: hazy increased density in mid L lung, infectious pneumonitis, no focal consolidation - CT ab/pelvis: trace b/l pleural effusions & small volume pericardial fluid, cholelithiasis, mild wall thickening of rectum - Continue levaquin 4/26 - Duonebs PRN - Blood & Urine cxs, quant gold, PPD pending - Possibly due to aspiration 2/2 encephalopathy related to ESRD ESRD likely 2/2 HTN - Dr. Orellana consulted from ED, appreciate recs - Palliative care consult - Surgery consulted, placed hemodialysis catheter yesterday with more definitive dialysis catheter placement for later this week HTN - Continue Atenolol q2 days - labetalol, hydralazine prn - Continue home bumetanide, prazosin Acute metabolic encephalopathy, resolved - 2/2 ESRD - CT brain: no acute intracranial process Likely MSK chest wall pain - Trop indeterminates, stable - EKG no ST segment changes Normocytic anemia - Hgb 12, likely 2/2 chronic disease Thrombocyopenia - Continue to monitor with CBC Elevated BNP - 500, possibly unreliable considering kidney function Code Status: FULL DVT ppx: Heparin PCP: none, lives in [place] Addendum - Attending - Attending Attestation Date/Time: 06/13/18 3647 I personally evaluated the patient and discussed the management with Dr. Mosqueda I agree with the History, Examination, Assessment and Plan documented above with any addition or exceptions noted below. For Hemodialysis this AM patient c/o problems sleeping.
[2018-06-13] MEDS ORDERED: Melatonin 3 MG TAB PO PRN (09:05)
[2018-06-13 09:46] LABS: Anion Gap 23 mmol/L (10-20); Calc. Creatinine Clearance 5 mL/min (70-130); Calcium 8.1 mg/dL (7.8-10.44); Carbon Dioxide 18 mmol/L (23-31); Chloride 102 mmol/L (98-107); Estimated GFR-MDRD 4; Glucose 103 mg/dL (83-110); Potassium 5.8 mmol/L (3.5-5.1); Sodium 137 mmol/L (136-145)
[2018-06-13 09:58] LABS: BUN (Urea Nitrogen) 132 mg/dL (8.4-25.7)
[2018-06-13 10:03] LABS: Band 12 % (5-11); Eosinophils 1 % (0-10); Lymphocytes 11 % (21-51); MDiff Complete? YES; Mean Corpuscular HGB CONC 32.9 g/dL (32.0-36.0); Mean Corpuscular Hemoglobin 30.5 pg (27.0-31.0); Mean Corpuscular Volume 92.9 fL (78.0-98.0); Mean Platelet Volume 9.3 fL (7.4-10.4); Monocytes 2 % (0-10); Neutrophil 74 % (42-75); Platelet Count 130 thou/uL (130-400); RBC Distribution Width 12.1 % (11.5-14.5); Red Blood Cell (RBC) Count 3.94 mill/uL (4.70-6.10); White Blood Cell (WBC) Count 5.7 thou/uL (4.8-10.8)
[2018-06-13] MEDS: Heparin 5,000 UNITS/ML VIAL SC SCH ×3 (10:11→20:24)
[2018-06-13] MEDS ORDERED: Heparin 1,000 UNITS/ML VIAL ONE (11:11)
[2018-06-13] MEDS: Bumetanide 1 MG TAB PO SCH ×2 (11:25→14:54)
[2018-06-13] MEDS: Prazosin HCl 1 MG CAP PO SCH ×3 (11:25→20:24)
[2018-06-13] MEDS: Calcitriol 0.25 MCG CAP PO SCH (11:25)
--- NOTE | 2018-06-13 13:48 | PRG ---
DATE OF SERVICE: 06/13/2018 SUBJECTIVE: A 78-year-old gentleman being seen for end-stage renal disease. The patient denied any nausea, vomiting, or chest pain. OBJECTIVE: CONSTITUTIONAL: On exam, the patient is awake and alert. VITAL SIGNS: Afebrile, pulse 75, breathing 16, and blood pressure 164/74. GENERAL APPEARANCE AND MENTAL STATUS: Fair. HEAD/NECK: Normocephalic. Atraumatic. EYES: EOMI. No deformity. EARS: Clear. No ulcers. NOSE: Intact. No lesions. MOUTH: Clear. No discharge. THROAT: Clear. No exudate. LUNGS: Clear. No crackles. CARDIAC: S1, S2. No rub. ABDOMEN: Benign. Bowel sounds positive. GENITALIA/RECTUM: Smith absent. BACK/EXTREMITIES: Edema 0+. NEUROLOGICAL: Alert and motor intact. LABORATORY DATA: Reviewed. ASSESSMENT AND PLAN: 1. Stage 6 chronic kidney disease. Plan dialysis. 2. Hypertension, stable. 3. Hyperkalemia. Plan dialysis. 4. Uremia. Plan dialysis. Job ID: [id number]
[2018-06-13 14:18] LABS: Anion Gap 19 mmol/L (10-20); BUN (Urea Nitrogen) 118 mg/dL (8.4-25.7); Calc. Creatinine Clearance 6 mL/min (70-130); Calcium 8.2 mg/dL (7.8-10.44); Carbon Dioxide 22 mmol/L (23-31); Chloride 101 mmol/L (98-107); Estimated GFR-MDRD 5; Glucose 155 mg/dL (83-110); Potassium 4.9 mmol/L (3.5-5.1); Sodium 137 mmol/L (136-145)
[2018-06-13] MEDS: hydrALAZINE 20 MG/ML VIAL SLOW IVP PRN (17:02)
[2018-06-14] MEDS: hydrALAZINE 20 MG/ML VIAL SLOW IVP PRN ×2 (02:26→22:19)
[2018-06-14] MEDS: Atenolol 25 MG TAB PO SCH (05:12)
[2018-06-14 05:40] LABS: Anion Gap 20 mmol/L (10-20); Calc. Creatinine Clearance 5 mL/min (70-130); Calcium 7.7 mg/dL (7.8-10.44); Carbon Dioxide 20 mmol/L (23-31); Chloride 102 mmol/L (98-107); Estimated GFR-MDRD 4; Glucose 111 mg/dL (83-110); Potassium 4.8 mmol/L (3.5-5.1); Sodium 137 mmol/L (136-145)
[2018-06-14 05:51] LABS: BUN (Urea Nitrogen) 117 mg/dL (8.4-25.7)
[2018-06-14 06:11] LABS: Band 8 % (5-11); Hemoglobin 11.3 g/dL (14.0-18.0); Lymphocytes 4 % (21-51); MDiff Complete? YES; Mean Corpuscular HGB CONC 32.1 g/dL (32.0-36.0); Mean Corpuscular Hemoglobin 29.6 pg (27.0-31.0); Mean Corpuscular Volume 92.1 fL (78.0-98.0); Mean Platelet Volume 8.5 fL (7.4-10.4); Monocytes 6 % (0-10); Neutrophil 82 % (42-75); Platelet Count 124 thou/uL (130-400); Red Blood Cell (RBC) Count 3.84 mill/uL (4.70-6.10); White Blood Cell (WBC) Count 7.5 thou/uL (4.8-10.8)
--- NOTE | 2018-06-14 06:17 | PDOC.FM ---
- Subjective Subjective: Feeling well. Tolerating dialysis this morning. Feels thirsty, requesting water. Denies SOB, fever, chills. Concerned about his son coming today. Able to state that he has been in the hospital for 3 days and had a surgical procedure done 2 days ago. - Objective MAR Reviewed: Yes Vital Signs & Weight: Vital Signs (12 hours) Temp Pulse Resp BP BP BP Pulse Ox 06/14/18 05:12 72 189/77 H 06/14/18 04:00 97.7 F 72 20 189/77 H 93 L 06/14/18 02:26 73 180/77 H 06/14/18 00:00 97.8 F 73 20 180/77 H 94 L 06/13/18 20:00 97.6 F 75 20 194/79 H 93 L 06/13/18 19:30 93 L Weight Weight 68.583 kg I&O: 06/12/18 06/13/18 06/14/18 06:59 06:59 06:59 Intake Total 1870 150 890 Output Total 1170 1200 Balance 700 150 -310 Result Diagrams: 06/14/18 05:03 06/14/18 05:03 Phys Exam - Physical Examination Constitutional: NAD HEENT: moist MMs Neck: supple Respiratory: wheezing present Cardiovascular: RRR, no significant murmur Gastrointestinal: soft, non-tender Musculoskeletal: pulses present Neurological: moves all 4 limbs Psychiatric: normal affect, A&O x 3 Skin: no rash Dx/Plan (1) ESRD (end stage renal disease) Code(s): N18.6 - END STAGE RENAL DISEASE Status: Acute (2) Atypical chest pain Code(s): R07.89 - OTHER CHEST PAIN Status: Acute (3) Acute metabolic encephalopathy Code(s): G93.41 - METABOLIC ENCEPHALOPATHY Status: Acute (4) HTN (hypertension) Code(s): I10 - ESSENTIAL (PRIMARY) HYPERTENSION Status: Acute (5) Lower respiratory infection (e.g., bronchitis, pneumonia, pneumonitis, pulmonitis) Code(s): J22 - UNSPECIFIED ACUTE LOWER RESPIRATORY INFECTION Status: Acute (6) Normocytic anemia Code(s): D64.9 - ANEMIA, UNSPECIFIED Status: Acute (7) Thrombocytopenia Code(s): D69.6 - THROMBOCYTOPENIA, UNSPECIFIED Status: Acute - Plan Plan: 78yo male with pmh of HTN presenting with infectious pneumonitis and SARAH Infectious pneumonitis - Initially fever, no tachypnea, WBC, lactic normal on admission - CXR: hazy increased density in mid L lung, infectious pneumonitis, no focal consolidation - CT ab/pelvis: trace b/l pleural effusions & small volume pericardial fluid, cholelithiasis, mild wall thickening of rectum - Continue levaquin 06/12 q2 day dosing due to renal function (Plan for total 7 days) - Duonebs PRN - Blood & Urine cxs, quant gold, PPD negative - Possibly due to aspiration 2/2 encephalopathy related to ESRD ESRD likely 2/2 HTN - Dr. Orellana consulted, appreciate recs - Palliative care consult - Surgery consulted, placed hemodialysis catheter 06/12 with more definitive dialysis catheter placement for later this week - Dialysis 06/13 and today HTN - Continue Atenolol q2 days - labetalol, hydralazine prn - Continue home bumetanide, prazosin Acute metabolic encephalopathy, resolved - 2/2 ESRD - CT brain: no acute intracranial process Likely MSK chest wall pain - Trop indeterminates, stable - EKG no ST segment changes Normocytic anemia - Hgb 12, likely 2/2 chronic disease Thrombocyopenia - Continue to monitor with CBC Elevated BNP - 500, possibly unreliable considering kidney function Code Status: FULL DVT ppx: Heparin PCP: none, lives in [place] Addendum - Attending - Attending Attestation Date/Time: 06/14/18 1873 I personally evaluated the patient and discussed the management with Dr. Mosqueda. I agree with the History, Examination, Assessment and Plan documented above with any addition or exceptions noted below. Plan to treat pneumonitis with antibiotics for 7 days. He is tolerating dialysis. Today all he said through the repair cameraman was that he was hungry and wanted to eat his lunch.
[2018-06-14] MEDS: Calcitriol 0.25 MCG CAP PO SCH (10:44)
[2018-06-14] MEDS: Bumetanide 1 MG TAB PO SCH ×2 (10:44→14:37)
[2018-06-14] MEDS: Heparin 5,000 UNITS/ML VIAL SC SCH ×3 (10:45→22:19)
[2018-06-14] MEDS: Prazosin HCl 1 MG CAP PO SCH ×3 (10:45→22:19)
[2018-06-14] MEDS: guaiFENesin ER 600 MG TAB PO PRN (10:45)
--- NOTE | 2018-06-14 15:24 | PRG ---
DATE OF SERVICE: 06/14/2018 SUBJECTIVE: Patient was seen and examined at bedside and overnight events noted. Patient denies any shortness of breath or chest pain or palpitation. No history of nausea or vomiting or diarrhea or fever or chills or cramps. OBJECTIVE: GENERAL: This is a 78-year-old elderly male in no acute distress. VITAL SIGNS: Temperature . Heart rate 75. Respiratory rate /65. HEENT: Atraumatic, normocephalic. Oral mucosa is moist NECK: Supple. CARDIOVASCULAR: S1, S2 heard. Rate and rhythm regular. RESPIRATORY: Clear to auscultation. GASTROINTESTINAL: Abdomen is soft. MUSCULOSKELETAL: No tenderness. No edema. DERMATOLOGIC: No skin rash. NEUROLOGIC: Alert and awake and oriented X3. No focal neurologic deficits. Moving all the extremities. PSYCHIATRIC: Mood and affect normal. LABORATORY DATA: Potassium is 4.8, BUN is117, creatinine is 11.5. ASSESSMENT AND PLAN: 1. End-stage renal disease. Continue dialysis as tolerated. 2. Hypertension. 3. Hyperkalemia. 4. Uremia. I did explain to family regarding the need for outpatient dialysis and inability to arrange due to lack of insurance and family is thinking about further options. The plan is to have dialysis as tolerated while inpatient. Job ID: [id number]
[2018-06-14] MEDS: Benzonatate 100 MG CAP PO PRN (16:24)
[2018-06-14] MEDS ORDERED: CEFAZOLIN 2 GM in Premix Bag 1 BAG IVPB SCH (18:30)
[2018-06-14] MEDS ORDERED: Heparin 10,000 UNITS/ 10 ML VIAL ONE (19:25)
[2018-06-15 05:52] LABS: Anion Gap 16 mmol/L (10-20); BUN (Urea Nitrogen) 85 mg/dL (8.4-25.7); Calc. Creatinine Clearance 7 mL/min (70-130); Calcium 7.6 mg/dL (7.8-10.44); Carbon Dioxide 25 mmol/L (23-31); Chloride 102 mmol/L (98-107); Estimated GFR-MDRD 6; Glucose 104 mg/dL (83-110); Potassium 4.3 mmol/L (3.5-5.1); Sodium 139 mmol/L (136-145)
[2018-06-15 06:10] LABS: Band 1 % (5-11); Eosinophils 2 % (0-10); Hemoglobin 11.2 g/dL (14.0-18.0); Lymphocytes 6 % (21-51); MDiff Complete? YES; Mean Corpuscular HGB CONC 32.6 g/dL (32.0-36.0); Mean Corpuscular Volume 92.2 fL (78.0-98.0); Mean Platelet Volume 8.4 fL (7.4-10.4); Monocytes 11 % (0-10); Neutrophil 78 % (42-75); Platelet Count 122 thou/uL (130-400); RBC Distribution Width 11.9 % (11.5-14.5); Reactive Lymphocytes 2 % (0-10); Red Blood Cell (RBC) Count 3.74 mill/uL (4.70-6.10); White Blood Cell (WBC) Count 5.3 thou/uL (4.8-10.8)
--- NOTE | 2018-06-15 06:31 | PDOC.FM ---
- Subjective Subjective: Feeling better today then he has in the last few days. Denies SOB, pain. Will be having barium swallow done today. - Objective MAR Reviewed: Yes Vital Signs & Weight: Vital Signs (12 hours) Temp Pulse Resp BP BP Pulse Ox 06/15/18 04:00 98.1 F 67 18 183/79 H 95 06/15/18 00:00 98.0 F 67 19 145/65 H 95 06/14/18 22:19 74 203/91 H 06/14/18 20:00 98.2 F 69 18 203/91 H 96 Weight Weight 68.583 kg I&O: 06/13/18 06/14/18 06/15/18 06:59 06:59 06:59 Intake Total 150 1090 560 Output Total 1900 1425 Balance 150 -810 -865 Result Diagrams: 06/15/18 05:15 06/15/18 05:15 Phys Exam - Physical Examination Constitutional: NAD HEENT: moist MMs Neck: supple Respiratory: wheezing present Cardiovascular: RRR, no significant murmur Gastrointestinal: soft, non-tender, positive bowel sounds Musculoskeletal: pulses present Neurological: moves all 4 limbs Psychiatric: normal affect Skin: no rash Dx/Plan (1) ESRD (end stage renal disease) Code(s): N18.6 - END STAGE RENAL DISEASE Status: Acute (2) Atypical chest pain Code(s): R07.89 - OTHER CHEST PAIN Status: Acute (3) Acute metabolic encephalopathy Code(s): G93.41 - METABOLIC ENCEPHALOPATHY Status: Acute (4) HTN (hypertension) Code(s): I10 - ESSENTIAL (PRIMARY) HYPERTENSION Status: Acute (5) Lower respiratory infection (e.g., bronchitis, pneumonia, pneumonitis, pulmonitis) Code(s): J22 - UNSPECIFIED ACUTE LOWER RESPIRATORY INFECTION Status: Acute (6) Normocytic anemia Code(s): D64.9 - ANEMIA, UNSPECIFIED Status: Acute (7) Thrombocytopenia Code(s): D69.6 - THROMBOCYTOPENIA, UNSPECIFIED Status: Acute - Plan Plan: 78yo male with pmh of HTN currently being treated for pneumonia and ESRD Pneumonia - Continue levaquin 06/12 q2 day dosing due to renal function (Plan for total 7 days) - Duonebs PRN - Blood & Urine cxs, quant gold, PPD negative - Possibly due to aspiration 2/2 encephalopathy related to ESRD ESRD likely 2/2 HTN - Dr. Orellana consulted, appreciate recs - Palliative & CM consulted - Surgery consulted, placed hemodialysis catheter 06/12 with more definitive dialysis catheter placement for later this week - Continue HD Dysphagia - Barium swallow today - Speech consulted, apprec recs HTN - Continue Atenolol q2 days, bumetanide and prazosin - labetalol, hydralazine prn Acute metabolic encephalopathy, resolved - 2/2 ESRD - CT brain: no acute intracranial process Likely MSK chest wall pain - Trop stable. EKG no ST segment changes Normocytic anemia - Hgb 12, likely 2/2 chronic disease Thrombocyopenia - Continue to monitor with CBC Elevated BNP - 500, possibly unreliable considering kidney function Code Status: FULL DVT ppx: Heparin PCP: none, lives in [place] Addendum - Attending - Attending Attestation Date/Time: 06/15/18 1702 I personally evaluated the patient and discussed the management with Dr. Mosqueda. I agree with the History, Examination, Assessment and Plan documented above with any addition or exceptions noted below. The patient is doing well. He will go for fistula placement this afternoon. Continue dialysis per nephro.
[2018-06-15] MEDS: hydrALAZINE 20 MG/ML VIAL SLOW IVP PRN ×2 (08:50→20:06)
--- NOTE | 2018-06-15 10:59 | PRG ---
DATE OF SERVICE: 06/15/2018 SUBJECTIVE: Patient was seen and examined at bedside and overnight events noted. Patient denies any shortness of breath or chest pain or palpitation. No history of nausea or vomiting or diarrhea or fever or chills or cramps. OBJECTIVE: GENERAL: This is an elderly male, in no apparent distress. VITAL SIGNS: Temperature 98.3. Heart rate 78. Respiratory rate 18. Blood pressure 209/89. HEENT: Atraumatic, normocephalic. Oral mucosa is moist NECK: Supple. CARDIOVASCULAR: S1, S2 heard. Rate and rhythm regular. RESPIRATORY: Clear to auscultation. GASTROINTESTINAL: Abdomen is soft. MUSCULOSKELETAL: No tenderness. No edema. DERMATOLOGIC: No skin rash. NEUROLOGIC: Alert and awake and oriented X3. No focal neurologic deficits. Moving all the extremities. PSYCHIATRIC: Mood and affect normal. LABORATORY DATA: Potassium 4.3, BUN is 85, and creatinine is 8.8. ASSESSMENT AND PLAN: 1. End-stage renal disease. Continue dialysis as tolerated. No dialysis today. The patient is not able to have outpatient dialysis set up. 2. Hypertension. 3. Hyperkalemia. 4. Uremia. We will continue dialysis as tolerated. Plan for dialysis tomorrow. Job ID: [id number]
[2018-06-15] MEDS: Bumetanide 1 MG TAB PO SCH ×2 (11:01→14:53)
[2018-06-15] MEDS: Calcitriol 0.25 MCG CAP PO SCH (11:02)
[2018-06-15] MEDS: Prazosin HCl 1 MG CAP PO SCH ×3 (11:02→20:06)
[2018-06-15] MEDS: Heparin 5,000 UNITS/ML VIAL SC SCH ×3 (11:03→20:07)
[2018-06-15] MEDS ORDERED: Fentanyl 100 MCG/2 ML VIAL ONE (11:44)
[2018-06-15] MEDS ORDERED: Albuterol Sulfate 2.5 mg/3 ml Neb ONE (12:23)
[2018-06-15] MEDS ORDERED: hydrALAZINE 20 MG/ML VIAL ONE (13:15)
[2018-06-15] MEDS ORDERED: Protamine Sulfate 250 MG/25 ML VIAL ONE (13:48)
[2018-06-15] MEDS ORDERED: Bupivacaine HCl 0.5%/Epinephrine 1:200,000/PF 30 ml Vial ONE ×2 (13:48→16:03)
[2018-06-15] MEDS ORDERED: Heparin 5,000 UNITS/ML VIAL ONE (13:48)
[2018-06-15] MEDS ORDERED: Lidocaine 2% PF 5 ML VIAL ONE (13:49)
[2018-06-15] MEDS ORDERED: Heparin 10,000 UNITS/ 10 ML VIAL ONE (14:57)
[2018-06-15] MEDS ORDERED: PROPOFOL 200 MG/20 ML VIAL ONE (14:57)
[2018-06-15] MEDS: traMADol HCl 50 MG TAB PO PRN (17:44)
--- NOTE | 2018-06-15 22:27 | OP ---
DATE OF PROCEDURE: 06/15/2018 PREOPERATIVE DIAGNOSES: End-stage renal disease, small veins bilaterally for primary fistula, undocumented POSTOPERATIVE DIAGNOSES: End-stage renal disease, small veins bilaterally for primary fistula, undocumented occluded cephalic vein left upper arm. PROCEDURE PERFORMED: Left arm basilic vein transposition fistula inflow proximal radial artery. ANESTHESIA: Regional, TIVA, local 0.5% Marcaine with epinephrine 30 mL mixed with 2% Xylocaine 10 mL. FINDINGS: The patient had an occluded cephalic vein with a small outflow above the antecubital fossa requiring basilic vein transposition fistula. Proximal radial artery was of good quality. DESCRIPTION OF PROCEDURE: The patient was taken to the operating room where under intravenous sedation and regional anesthesia, the left upper extremity was prepared with ChloraPrep and draped in routine fashion. I made a small incision in the left wrist and the cephalic vein was too small and it was closed with 3-0 Monocryl and Dermabond. Incision longitudinally made below the antecubital fossa in the proximal volar forearm, skin and subcutaneous tissue, identifying the antecubital vein, which is good caliber. He had a second vein more medially and connected more directly to the basilic vein. Outflow of this antecubital vein and cephalic vein of forearm were primary through the basilic vein. He had a small communicating branch to the cephalic vein. Proximal radial artery, ulnar artery dissected free. An incision was made in the medial left upper arm and carried down through the skin and subcutaneous tissue from the axilla to proximal forearm, unroofed the basilic vein, preserving nerves. Branches of the basilic vein divided between clips and 4-0 silk and 3-0 silk ties. Vein was mobilized and completion marked to prevent torsion. A Melba Wick tunneler 12 head was used to create a tunnel over the anterior arm. The antecubital vein was used to anastomose to the proximal radial artery after given 6000 units of heparin intravenously. After adequate circulation time, the brachial radial and ulnar artery were clamped with vascular clamp. A 2.5 cm anastomosis was made between the proximal radial artery and the antecubital cephalic vein forearm, and vein spatulated accordingly and had been interrogated with coronary dilators, passing coronary dilators from 2 mm to 4 mm, basilic vein outflow, but there was occluded cephalic vein outflow. The communicating branch of cephalic vein was ligated with 4-0 silk ties and divided between ties and clips. Once the anastomosis of the proximal radial artery was completed, also basilic vein was transected above the antecubital fossa and connected to the Melba-Wick tunneler. We tunneled in the incision and then flushed with heparinized saline solution, noted good flow. End vein to end vein anastomosis created, 2.5 cm spatulated, anastomosis with continuous suture of 6-0 Prolene. At completion of the anastomosis, there was good outflow in the fistula. The patient was given 50 mg of protamine intravenously by Anesthesia. Good hemostasis noted. Surgicel applied. Subcutaneous tissue was approximated with 3-0 Monocryl, skin with lalita and sterile dressing applied. Job ID: [id number]
[2018-06-16] MEDS: traMADol HCl 50 MG TAB PO PRN (00:32)
[2018-06-16 06:31] LABS: Hemoglobin 10.4 g/dL (14.0-18.0); Mean Corpuscular HGB CONC 32.4 g/dL (32.0-36.0); Mean Corpuscular Hemoglobin 29.6 pg (27.0-31.0); Mean Corpuscular Volume 91.5 fL (78.0-98.0); Mean Platelet Volume 8.5 fL (7.4-10.4); Platelet Count 124 thou/uL (130-400); RBC Distribution Width 11.9 % (11.5-14.5); Red Blood Cell (RBC) Count 3.52 mill/uL (4.70-6.10); White Blood Cell (WBC) Count 6.6 thou/uL (4.8-10.8)
[2018-06-16 06:35] LABS: Band 7 % (5-11); Lymphocytes 7 % (21-51); MDiff Complete? YES; Monocytes 4 % (0-10); Myelocyte 3 % (0-0); Neutrophil 79 % (42-75)
[2018-06-16 06:41] LABS: Anion Gap 19 mmol/L (10-20); BUN (Urea Nitrogen) 95 mg/dL (8.4-25.7); Calc. Creatinine Clearance 6 mL/min (70-130); Calcium 7.5 mg/dL (7.8-10.44); Carbon Dioxide 22 mmol/L (23-31); Chloride 102 mmol/L (98-107); Estimated GFR-MDRD 5; Glucose 100 mg/dL (83-110); Potassium 4.3 mmol/L (3.5-5.1); Sodium 139 mmol/L (136-145)
--- NOTE | 2018-06-16 06:42 | PDOC.FM ---
- Subjective Subjective: Feeling good today. Reports vision has improved since admission. Daughters still arranging outpt dialysis. Denies chest pain, shortness of breath. - Objective MAR Reviewed: Yes Vital Signs & Weight: Vital Signs (12 hours) Temp Pulse Resp BP BP BP Pulse Ox 06/16/18 04:00 98.0 F 73 18 179/79 H 97 06/16/18 00:00 97.3 F L 66 18 137/65 96 06/15/18 21:40 64 131/57 L 06/15/18 20:06 70 185/88 H 06/15/18 20:00 97.3 F L 66 18 194/80 H 96 Weight Weight 68.583 kg I&O: 06/14/18 06/15/18 06/16/18 06:59 06:59 06:59 Intake Total 1090 560 240 Output Total 1900 1925 1070 Balance -810 -1365 -830 Result Diagrams: 06/16/18 06:00 06/16/18 06:00 Phys Exam - Physical Examination Constitutional: NAD HEENT: moist MMs Neck: supple Respiratory: wheezing present Cardiovascular: RRR, no significant murmur Gastrointestinal: soft, non-tender, positive bowel sounds Musculoskeletal: no edema Neurological: moves all 4 limbs Psychiatric: normal affect, A&O x 3 Skin: no rash Dx/Plan (1) ESRD (end stage renal disease) Code(s): N18.6 - END STAGE RENAL DISEASE Status: Acute (2) Atypical chest pain Code(s): R07.89 - OTHER CHEST PAIN Status: Acute (3) Acute metabolic encephalopathy Code(s): G93.41 - METABOLIC ENCEPHALOPATHY Status: Acute (4) HTN (hypertension) Code(s): I10 - ESSENTIAL (PRIMARY) HYPERTENSION Status: Acute (5) Lower respiratory infection (e.g., bronchitis, pneumonia, pneumonitis, pulmonitis) Code(s): J22 - UNSPECIFIED ACUTE LOWER RESPIRATORY INFECTION Status: Acute (6) Normocytic anemia Code(s): D64.9 - ANEMIA, UNSPECIFIED Status: Acute (7) Thrombocytopenia Code(s): D69.6 - THROMBOCYTOPENIA, UNSPECIFIED Status: Acute - Plan Plan: 78yo male with pmh of HTN currently being treated for pneumonia and ESRD Pneumonia - Continue levaquin 06/12 q2 day dosing due to renal function (Plan for total 7 days) - Blood & Urine cxs negative. quant gold pending, PPD negative - Possibly due to aspiration 2/2 encephalopathy related to ESRD ESRD likely 2/2 HTN - Dr. Orellana consulted, appreciate recs - Palliative & CM consulted - Surgery consulted, placed hemodialysis catheter 06/12 - Due to occluded cephalic v basilic v transposition fistula on 06/15 by surgery. Will need dressing removed on 06/18, lalita removed in 2 weeks and no access for 4 weeks. - Continue HD, plan for dialysis today then discharge. Dysphagia - Barium swallow today - Speech consulted, apprec recs HTN - Continue Atenolol q2 days, bumetanide and prazosin - labetalol, hydralazine prn Acute metabolic encephalopathy, resolved - 2/2 ESRD - CT brain: no acute intracranial process Likely MSK chest wall pain - Trop stable. EKG no ST segment changes Normocytic anemia - Hgb 12, likely 2/2 chronic disease Thrombocyopenia - Continue to monitor with CBC Elevated BNP - 500, possibly unreliable considering kidney function Code Status: FULL DVT ppx: Heparin PCP: none, lives in [place] Addendum - Attending - Attending Attestation Date/Time: 06/16/18 1500 I personally evaluated the patient and discussed the management with Dr. Mosqueda. I agree with the History, Examination, Assessment and Plan documented above with any addition or exceptions noted below. The patient is stable for discharge after dialysis. We had a long discussion with the it technical support specialist regarding the importance of going to [place] for dialysis as he is unable to get dialysis here in [place].
[2018-06-16] MEDS: Atenolol 25 MG TAB PO SCH ×2 (08:18→08:35)
[2018-06-16] MEDS: Calcitriol 0.25 MCG CAP PO SCH (08:18)
[2018-06-16] MEDS: Heparin 5,000 UNITS/ML VIAL SC SCH ×3 (08:19→20:06)
[2018-06-16] MEDS: Prazosin HCl 1 MG CAP PO SCH ×3 (08:19→20:06)
[2018-06-16] MEDS: Amlodipine 5 MG TAB PO SCH (08:19)
[2018-06-16] MEDS: Bumetanide 1 MG TAB PO SCH ×2 (08:19→17:58)
--- NOTE | 2018-06-16 09:47 | RAD ---
Exam: Modified barium swallow with speech therapist: HISTORY: Unspecified dysphasia. R13.10 Feeding difficulties R63.3 FINDINGS: Patient was evaluated in the upright lateral position with multiple consistencies. There was penetrat ion with numerous consistencies without mikaela aspiration, except possible minimal aspiration with thin by straw. IMPRESSION: Please see speech therapy report for additional findings and recommendations.
[2018-06-16] MEDS: hydrALAZINE 20 MG/ML VIAL SLOW IVP PRN ×2 (11:46→18:07)
--- NOTE | 2018-06-16 12:06 | PRG ---
DATE OF SERVICE: 06/16/2018 SUBJECTIVE: Patient was seen and examined at bedside and overnight events noted. Patient denies any shortness of breath or chest pain or palpitation. No history of nausea or vomiting or diarrhea or fever or chills or cramps. OBJECTIVE: GENERAL: This is a well-built male in no apparent distress. VITAL SIGNS: Afebrile. Heart rate 71. Respiratory rate 18. Blood pressure 198/88. HEENT: Atraumatic, normocephalic. Oral mucosa is moist NECK: Supple. CARDIOVASCULAR: S1, S2 heard. Rate and rhythm regular. RESPIRATORY: Clear to auscultation. GASTROINTESTINAL: Abdomen is soft. MUSCULOSKELETAL: No tenderness. No edema. DERMATOLOGIC: No skin rash. NEUROLOGIC: Alert and awake and oriented X3. No focal neurologic deficits. Moving all the extremities. PSYCHIATRIC: Mood and affect normal. LABORATORY DATA: Potassium 4.3, BUN is 95, creatinine is 10.2. ASSESSMENT AND PLAN: 1. End-stage renal disease. Continue dialysis as tolerated. 2. Hypertension. 3. Hyperkalemia, better. 4. Uremia, better. 5. Edema. 6. Anemia. We will have dialysis. Family planning to take him back to [place] to continue dialysis. Job ID: [id number]
--- NOTE | 2018-06-16 16:56 | PRG ---
DATE OF SERVICE: 06/16/2018 Mr. Zhang is doing well today. He is doing dialysis. His dressings in left arm are dry. He has good bruit and thrill beneath the bandages. His hand has good strength and mobility. Status post basilic vein transposition fistula of left arm due to occluded cephalic vein of left arm. He will need to have these dressings removed Thursday or Thursday, leave them off. He can wash the left upper arm stapled wound with soap and water and bath or shower daily and pat it dry. He can elevate it periodically during the day to minimize swelling. Swelling is to be expected. He should have his lalita out in 2 weeks. He can see me in my office, but if he leaves the country, he can removed in [place]. They should not access his left arm fistula for 4 weeks from the date of surgery (06/15/2018). Job ID: [id number]
[2018-06-16 18:02] LABS: Phosphorus 4.2 mg/dL (2.3-4.7)
[2018-06-16 18:11] LABS: ALT (SGPT) Less than 7 U/L (8-55); AST (SGOT) 23 U/L (5-34); Albumin 2.6 g/dL (3.4-4.8); Alkaline Phosphatase 66 U/L (40-150); Anion Gap 17 mmol/L (10-20); BUN (Urea Nitrogen) 38 mg/dL (8.4-25.7); Bilirubin, Total 0.3 mg/dL (0.2-1.2); Calc. Creatinine Clearance 12 mL/min (70-130); Calcium 8.3 mg/dL (7.8-10.44); Carbon Dioxide 25 mmol/L (23-31); Chloride 100 mmol/L (98-107); Estimated GFR-MDRD 11; Globulin 3.5 g/dL (2.4-3.5); Glucose 104 mg/dL (83-110); Magnesium 2.1 mg/dL (1.6-2.6); Potassium 3.5 mmol/L (3.5-5.1); Protein, Total 6.1 g/dL (5.8-8.1); Sodium 138 mmol/L (136-145)
--- NOTE | 2018-06-16 19:42 | PDOC.EVN ---
Event Note - Event Note Event Note: 07/16/2018 at 17:15 Paged by nurse regarding patient's mental status after dialysis. Patient reportedly hallucinating and agitated. He was not oriented to time or place. I went up to evaluate patient. He was reportedly talking to people in [place] that weren't actually present. He did not appear to have any focal deficits. Vital signs all WNL. Glucose NML. CMP obtained to check for electrolyte abnormalities. No abnormalities noted. Physical exam unremarkable. At baseline, patient reportedly oriented x3. I explained to the family that this is likely delirium and the best thing to do is help to keep him oriented. Patient technically discharged after dialysis, but discharge held due to delirium. I did not feel comfortable sending patient out with acute mental status changes directly after dialysis. Additionally, family present in the room was unaware of patient's barium swallow results. I explained that he failed the eval and was at very high risk for aspiration. OT/ST recommended modified diet, although they did certified lactation counselor that he was still at risk of aspiration even with this diet. The other option would be a PEG tube which at this point would be invasive and still does not eliminate the risk for aspiration. The family has agreed to proceed with modified diet knowing the risks of aspiration. A 35 min discussion was had with family regarding patient's current state and the results of the swallow eval. Tuyet Phillips, DO PGY-2
[2018-06-16] MEDS ORDERED: Ziprasidone 20 MG VIAL IM PRN (19:47)
[2018-06-16] MEDS ORDERED: Sterile Water 10 ML VIAL FS PRN (19:48)
[2018-06-16] MEDS: Acetaminophen 500 MG TAB PO PRN (20:06)
[2018-06-17] MEDS: Acetaminophen 500 MG TAB PO PRN (02:17)
[2018-06-17 05:29] LABS: Band 4 % (5-11); Eosinophils 2 % (0-10); Hemoglobin 10.5 g/dL (14.0-18.0); Lymphocytes 10 % (21-51); MDiff Complete? YES; Mean Corpuscular HGB CONC 33.3 g/dL (32.0-36.0); Mean Corpuscular Hemoglobin 30.3 pg (27.0-31.0); Mean Corpuscular Volume 90.9 fL (78.0-98.0); Mean Platelet Volume 8.4 fL (7.4-10.4); Monocytes 7 % (0-10); Neutrophil 77 % (42-75); Platelet Count 135 thou/uL (130-400); Red Blood Cell (RBC) Count 3.47 mill/uL (4.70-6.10); White Blood Cell (WBC) Count 7.3 thou/uL (4.8-10.8)
[2018-06-17 05:30] LABS: Anion Gap 15 mmol/L (10-20); BUN (Urea Nitrogen) 49 mg/dL (8.4-25.7); Calc. Creatinine Clearance 9 mL/min (70-130); Calcium 7.9 mg/dL (7.8-10.44); Carbon Dioxide 27 mmol/L (23-31); Chloride 101 mmol/L (98-107); Estimated GFR-MDRD 8; Glucose 91 mg/dL (83-110); Potassium 3.8 mmol/L (3.5-5.1); Sodium 139 mmol/L (136-145)
--- NOTE | 2018-06-17 06:15 | PDOC.FM ---
- Subjective Subjective: Back to baseline mental status this morning. No overnight events. Eating well with modified diet. - Objective MAR Reviewed: Yes Vital Signs & Weight: Vital Signs (12 hours) Temp Pulse Resp BP Pulse Ox 06/17/18 03:54 98.1 F 70 18 176/76 H 95 06/17/18 00:00 98.1 F 67 18 176/74 H 93 L 06/16/18 20:00 97.6 F 70 19 187/74 H 95 Weight Weight 68.583 kg I&O: 06/15/18 06/16/18 06/17/18 06:59 06:59 06:59 Intake Total 560 240 480 Output Total 1925 1070 620 Balance -1365 -830 -140 Result Diagrams: 06/17/18 04:45 06/17/18 04:45 Phys Exam - Physical Examination Constitutional: NAD HEENT: moist MMs Neck: supple Respiratory: wheezing present Cardiovascular: RRR, no significant murmur Gastrointestinal: soft, non-tender, positive bowel sounds Musculoskeletal: no edema Neurological: moves all 4 limbs Psychiatric: normal affect Skin: no rash Dx/Plan (1) ESRD (end stage renal disease) Code(s): N18.6 - END STAGE RENAL DISEASE Status: Acute (2) Atypical chest pain Code(s): R07.89 - OTHER CHEST PAIN Status: Acute (3) Acute metabolic encephalopathy Code(s): G93.41 - METABOLIC ENCEPHALOPATHY Status: Acute (4) HTN (hypertension) Code(s): I10 - ESSENTIAL (PRIMARY) HYPERTENSION Status: Acute (5) Lower respiratory infection (e.g., bronchitis, pneumonia, pneumonitis, pulmonitis) Code(s): J22 - UNSPECIFIED ACUTE LOWER RESPIRATORY INFECTION Status: Acute (6) Normocytic anemia Code(s): D64.9 - ANEMIA, UNSPECIFIED Status: Acute (7) Thrombocytopenia Code(s): D69.6 - THROMBOCYTOPENIA, UNSPECIFIED Status: Acute - Plan Plan: 78yo male with pmh of HTN currently being treated for pneumonia and ESRD Aspiration Pneumonitis - Barium swallow with severe aspiration. Discussed with family who agreed upon modified diet with risk of aspiration. - Blood & Urine cxs negative. Quant gold pending, PPD negative - s/p Levaquin ESRD likely 2/2 HTN - Dr. Orellana consulted, appreciate recs - Palliative & CM consulted - Surgery consulted, placed hemodialysis catheter 06/12 - Due to occluded cephalic v basilic v transposition fistula on 06/15 by surgery. Will need dressing removed on 06/18, lalita removed in 2 weeks and no access for 4 weeks. Dysphagia - Barium swallow with severe disfunction. - Speech consulted, apprec recs HTN - Continue Atenolol q2 days, bumetanide, Amlodipine and prazosin - labetalol, hydralazine prn Acute metabolic encephalopathy, resolved - 2/2 ESRD - CT brain: no acute intracranial process Likely MSK chest wall pain - Trop stable. EKG no ST segment changes Normocytic anemia - Hgb 12, likely 2/2 chronic disease Thrombocyopenia - Continue to monitor with CBC Elevated BNP - 500, possibly unreliable considering kidney function Code Status: FULL DVT ppx: Heparin PCP: none, lives in [place] Addendum - Attending - Attending Attestation Date/Time: 06/17/18 8139 I personally evaluated the patient and discussed the management with Dr. Mosqueda. I agree with the History, Examination, Assessment and Plan documented above with any addition or exceptions noted below. The family was concerned about swelling noted in the right ankle yesterday but today it is resolved. I examined the ankle and he had no edema, no tenderness to palpation and normal movement. He is on a mechanical soft diet and family notes they understand the risk of aspiration. They were also wanting sleep medication but we discussed that he is on melatonin and anything stronger could cause more confusion. Pt is back to baseline and will d/c home. We have discussed the importance of him returning to [place] where he will be able to get dialysis.
--- NOTE | 2018-06-17 06:44 | DIS ---
DATE OF ADMISSION: 06/10/2018 DATE OF DISCHARGE: 06/16/2018 RESIDENT: Amie Mosqueda MD, PGY-1. ADMITTING ATTENDING: Kassy Champion MD. CONSULTS: 1. Nephrology. 2. General surgery. PROCEDURES: 1. Abdominal and pelvis CT. No evidence for obstructive uropathy or nephrolithiasis. Trace bilateral pleural effusions, small volume pericardial fluid, cholestasis. Mild wall thickening of the rectum which may signify colitis in the proper clinical setting. If symptoms persist, followup imaging with IV and oral contrast suggested. 2. Brain CT. Mucosal disease involving the paranasal sinuses and left mastoid air cells, chronic intracranial findings with no evidence for acute intracranial hemorrhage. 3. Chest x-ray, hazy increased density in the mid left lung zone. Findings are suspicious for infectious pneumonitis. No focal consolidation. 4. Chest x-ray on 06/12/2018. A new large caliber central line via the right jugular overlies the STA. A left jugular central line also has tip overlying the SVC. He has infiltrate in the left upper lung, mild vascular engorgement. 5. Operative note on 06/15/2018, left arm basilic vein transposition fistula inflow proximal radial artery. 6. Speech modified barium swallow. The patient was under evaluated in upright lateral position with multiple consistencies. There was penetration with numerous consistencies without mikaela aspiration except possible minimal aspiration with thin by straw. PRIMARY DIAGNOSES: 1. Pneumonia. 2. End-stage renal disease, likely secondary to hypertension, requiring hemodialysis. 3. Dysphagia. SECONDARY DIAGNOSES: 1. Hypertension. 2. Acute metabolic encephalopathy, resolved. 3. Likely musculoskeletal chest wall pain. 4. Normocytic anemia. 5. Thrombocytopenia. 6. Elevated BNP. DISCHARGE MEDICATIONS: 1. Tylenol 1000 mg q.6 hours p.r.n. 2. Amlodipine 5 mg daily (new). 3. Atenolol 25 mg q.2 days. 4. Bumex 2 mg b.i.d. 5. Calcitriol 0.25 mcg daily. 6. Melatonin 3 mg p.o. at bedtime. 7. Prazosin 1 mg t.i.d. HISTORY OF PRESENT ILLNESS/HOSPITAL COURSE: Mr. Taylor is a 78-year-old male with past medical history of hypertension, end-stage renal disease, presenting for fever, productive cough, and weakness of 1-day duration. The patient is Kinyarwanda speaking. Due to confusion, most of the history is obtained per daughter in the emergency room. The patient did also have a complaint of chest pain reproducible to palpation. He was only oriented to self. The patient lives in [place] and came to the [place] 2 months ago to visit the family. He has a [facility] in [place] and they had recommended dialysis, but the patient refused. Multiple lengthy discussions were had with the patient by Dr. Orellana, ED staff and Family Medicine and the patient initially refused. The next day, the patient did decide to proceed with dialysis and nephrological consult. In the ED, the patient received Rocephin, Tylenol, 500 mL normal saline, Cefazolin, vancomycin. Labs were notable for anemia 12.2, potassium 5.3, creatinine 12.31, hemoglobin A1c 4.4. Troponin 0.081, 0.09. BNP 528.1. Procalcitonin 5.1. Vital signs notable for blood pressure of 183/99, heart rate 94, T-max 101.3. The patient was alert and oriented only to person. He had left-sided tenderness to palpation of the chest. 1+ pitting edema bilaterally and diffuse rhonchi bilaterally with decreased air movement in the lower lung kidd likely caused by infectious pneumonitis due to fever, but no hypoxia or leukocytosis. Lactic acid was normal. Chest x-ray showed hazy increased density in the mid left lung, likely infectious pneumonitis. No focal consolidations. CT abdomen and pelvis showed trace bilateral pleural effusion and due to his altered mental status, CT of brain showed no acute intracranial process. He was continued on Levaquin and like I said the procalcitonin 5.1, but this could be falsely elevated due to the patient's end-stage renal disease. Blood cultures were negative. QuantiFERON Gold indeterminant. PPD skin test negative. In regard to the patient's acute end-stage renal disease with creatinine 12.3, the patient was seeing a [facility] in [place] who recommended dialysis, but the patient refused as discussed above. He did consent to dialysis here and Dr. Orellana was consulted as well as General Surgery for fistula and tunneled catheter placement. He received tunneled catheter on 06/12/2018, dialysis was started at this time. The patient did have a fistula placed on 06/15/2018, of the left arm due to occluded cephalic vein with small outflow above the antecubital fossa required basilic vein transposition fistula. This should not be accessed for 4 weeks and lalita are to be removed in 2 weeks. Dressing was removed prior to discharge. The patient tolerated dialysis well; but due to the patient not being a citizen of the [place], he did not qualify for any outpatient dialysis; therefore, long discussion with the family over multiple days and prior to starting dialysis on how the patient would need to be discharged and returned to [place] for dialysis treatment. The patient 's family expressed understanding and were hopeful of that they could pay meyer pay to local dialysis facilities in [place]. In regard to his acute metabolic encephalopathy, was likely secondary to end-stage renal disease, this improved with dialysis. His hypertension was managed with his home Bumex and prazosin as well as p.r.n. labetalol and hydralazine. He did require multiple doses of the p.r.n., therefore, atenolol was started 25mg every other day due to ESRD. In regard to the patient' s reproducible chest pain likely musculoskeletal, troponins were indeterminate but stable and EKG showed no ST-segment changes. The patient had a transient thrombocytopenia 115 initially, 135 at discharge. The patient did have an elevated BNP in the 500s, but this is unreliable as the patient has end-stage renal disease and poor clearance. Because of the patient's likely aspiration pneumonitis and dysphagia, Speech Therapy was consulted, who evaluated and recommended barium swallow due to severe dysphagia. Barium swallow showed severe aspiration and we discussed the risks of feeding with his family who understood the risks and benefits and opted for comfort feeding with mechanical soft and thin liquids. DISPOSITION: Stable. DISCHARGE INSTRUCTIONS: 1. Location: Home, [place]. 2. Diet: Renal, high-protein, mechanical soft, thin liquids at risk for aspiration. 3. Activity: As tolerated. 4. Follow up with [facility] in [place], establish PCP in [place], needs to have lalita removed 2 weeks on 06/29/2018. No fistula access until 07/13/2018. Job ID: [id number] [facility]ITAL[facility]
[2018-06-17 07:56] VITALS: TEMP 97.5
[2018-06-17] MEDS: Amlodipine 5 MG TAB PO SCH (08:42)
[2018-06-17] MEDS: Calcitriol 0.25 MCG CAP PO SCH (08:43)
[2018-06-17] MEDS: Prazosin HCl 1 MG CAP PO SCH (08:43)
[2018-06-17] MEDS: traMADol HCl 50 MG TAB PO PRN (08:43)
[2018-06-17] MEDS: Bumetanide 1 MG TAB PO SCH (08:43)
[2018-06-17] MEDS: Atenolol 25 MG TAB PO SCH (08:43)
[2018-06-17] MEDS: Heparin 5,000 UNITS/ML VIAL SC SCH (08:44)
[2018-06-17] MEDS: hydrALAZINE 20 MG/ML VIAL SLOW IVP PRN (09:40)
--- NOTE | 2018-06-17 10:09 | PRG ---
DATE OF SERVICE: 06/17/2018 Mr. aTylor is doing well today. He has good thrill and bruit in his left arm fistula. His wound looks good. His dressings were removed today. Staple line looks good. He has good hand function. The patient can be discharged home at any time. He can follow up in my office in 2 weeks or can follow up with his doctor in [place] to remove his lalita. They can access his fistula in left arm in 4 weeks from the time of surgery. In the meantime, they will use his dialysis catheter. This was explained to his family. I will see him as needed in this hospitalization. Please call if necessary. Job ID: [id number]
[2018-06-17 11:43] VITALS: BP 153/67
--- NOTE | 2018-06-17 17:53 | PRG ---
DATE OF SERVICE: 06/17/2018 SUBJECTIVE: Patient was seen and examined at bedside and overnight events noted. Patient denies any shortness of breath or chest pain or palpitation. No history of nausea or vomiting or diarrhea or fever or chills or cramps. OBJECTIVE: GENERAL: This is a well-built male, in no acute distress. VITAL SIGNS: Temperature 97.5. Pulse 63. Respiratory rate 19. Blood pressure 153/67. HEENT: Atraumatic, normocephalic. Oral mucosa is moist NECK: Supple. CARDIOVASCULAR: S1, S2 heard. Rate and rhythm regular. RESPIRATORY: Clear to auscultation. GASTROINTESTINAL: Abdomen is soft. MUSCULOSKELETAL: No tenderness. No edema. DERMATOLOGIC: No skin rash. NEUROLOGIC: Alert and awake and oriented X3. No focal neurologic deficits. Moving all the extremities. PSYCHIATRIC: Mood and affect normal. LABORATORY DATA: Potassium is 3.8, BUN is 49, creatinine is 6.8. ASSESSMENT AND PLAN: 1. End-stage renal disease. Continue dialysis as tolerated. 2. Hypertension. 3. Hyperkalemia. 4. Anemia. Continue on dialysis as tolerated. Job ID: [id number]
[2018-06-17 20:07] LABS: QuantiFERON-TB Gold Plus Indeterminate (Negative)
--- NOTE | 2018-06-20 01:42 | EKG ---
Test Reason : Blood Pressure : / mmHG Vent. Rate : 094 BPM Atrial Rate : 094 BPM P-R Int : 162 ms QRS Dur : 072 ms QT Int : 378 ms P-R-T Axes : 048 033 089 degrees QTc Int : 472 ms Normal sinus rhythm Normal ECG Confirmed by GAGANDEEP MCPHERSON ([id number]), art editor VENESSA STEINBERG ([id number]) on 06/20/2018 1:41:55 AM Referred By: Confirmed By:GAGANDEEP MCPHERSON
== END 2018-06-17 13:05 | disposition home or self-care (01) | DRG 673 ==
LOC: ERS 20:39 → 2SE 22:51
PROVIDERS: ADMIT Family Medicine; ATTEND Family Medicine
PROC: 031C0ZF Bypass Left Radial Artery to Lower Arm Vein, Open Approach (ICD-10-PCS; principal; 2018-06-15)
PROC: 5A1D70Z Performance of Urinary Filtration, Intermittent, Less than 6 Hours Per Day (ICD-10-PCS; 2018-06-15)
DX: I12.0 Hypertensive chronic kidney disease with stage 5 chronic kidney disease or end stage renal disease (principal); G93.41 Metabolic encephalopathy; N18.6 End stage renal disease; J69.0 Pneumonitis due to inhalation of food and vomit; N17.9 Acute kidney failure, unspecified; E87.2 Acidosis; N40.0 Benign prostatic hyperplasia without lower urinary tract symptoms; D63.1 Anemia in chronic kidney disease; D69.6 Thrombocytopenia, unspecified; R79.89 Other specified abnormal findings of blood chemistry; E87.5 Hyperkalemia; R07.89 Other chest pain; R41.0 Disorientation, unspecified; Z79.899 Other long term (current) drug therapy
CPT/HCPCS: 36415; 36416; 51702; 70450; 71045; 74176; 74230; 80048; 80053; 81003; 81015; 82553; 83036; 83605; 83690; 83735; 83880; 84100; 84145; 84443; 84484; 85007; 85025; 85027; 86480; 86580; 86704; 86706; 87040; 87070; 87086; 87205; 87340; 87804; 90471; 90670; 93005; 93010; 93970; 94760; 96365; 96367; C1752; C1769; G0009; G0365; J0360; J0670; J0690; J0696; J1644; J2001; J2250; J2704; J2720; J3010; J3370; J3490; J7611